=== PATIENT | male | born 1960 | race Caucasian/White ===

== ENCOUNTER → 2020-04-22 08:55 | Outpatient (CLI) | payer BC, SELFPAY ==
[2020-04-22 10:11] LABS: Blood Urea Nitrogen 19 mg/dl (9-20); Estimated Glomerular Filt Rate 56 ml/min (>60); GFR (African American) 68 ML/MIN (>60)
--- NOTE | 2020-04-22 10:24 | CT_ITS ---
PROCEDURE: CT ABDOMEN PELVIS W CON CLINICAL INDICATION: ABD PAIN Bilateral flank pain mostly on the right COMPARISON: No exams were available for comparison TECHNIQUE: IV Contrast: 75ML OPTIRAY 350 Oral Contrast none Axial images obtained with sagittal and coronal reformats. All CT scans at the facility use one or more dose reduction, viz: automated exposure control, ma/kV adjustment per patient size (including targeted exams where dose is matched to indication, i.e. head), or iterative reconstruction technique. FINDINGS: LOWER THORAX: No acute finding. Minimal nonspecific thickening of the pericardium inferiorly ABDOMEN & PELVIS: Fatty liver. Prior cholecystectomy. No focal liver lesion. The spleen, right adrenal gland, and pancreas have an unremarkable appearance. There is a 3 cm left adrenal nodule. This measures 46 Hounsfield units on the portal phase imaging enhancement and 9 Hounsfield units on the delayed imaging with a relative washout of 80 percent which is highly suggestive of adrenal adenoma. An unenhanced exam could confirm this finding if clinically desired. There is an exophytic 13 mm hypodensity projecting off the lower pole of the right kidney with a density of 23 Hounsfield units. There was questionable thickened capsule of this lesion. Ultrasound suggested for further evaluation. No evidence of appendicitis or diverticulitis. There are scattered colonic diverticula. No intestinal obstruction or free air. There are scattered small nodes in the inguinal region. No pelvic mass or abnormal fluid collection. The prostate is mildly enlarged at 4.5 cm. There is thickening of the wall of the stomach. This may be due to nondistention versus gastritis. No acute bony anomalies. There is a left common iliac artery stent present which appears patent. IMPRESSION: 1. A fatty liver. 2. 3 cm left adrenal nodule which has the enhancement characteristics and washout appearance of an adenoma. Suggest [address] follow-up without contrast to confirm stability due to the 3 cm size. 3. Indeterminate right renal nodule. Suggest ultrasound to confirm cystic or solid characteristics. 4. Thickened wall of the stomach which may be due to nondistention or gastritis. Dictated by: Td Geronimo MD 04/23/2020 10:28 Electronically signed by Td Geronimo MD in [facility] 04/23/2020 10:28
== END ==
PROVIDERS: PCP Family Medicine; Visit Provider Family Medicine
DX: R10.84 Generalized abdominal pain (principal)
CPT/HCPCS: 36415; 74177; 82565; 84520; Q9967

== ENCOUNTER → 2020-04-30 10:02 | Outpatient (CLI) | payer BC, SELFPAY ==
--- NOTE | 2020-04-30 10:06 | US_ITS ---
PROCEDURE: US KIDNEY CLINICAL INDICATION: RT RENAL NODULE Right renal cyst COMPARISON: CT ABDOMEN PELVIS W CON from 04/22/2020 FINDINGS: The right kidney is [id number]. No hydronephrosis, cortical thinning, or renal mass or perinephric fluid collection is evident. The left kidney is [id number]. No hydronephrosis, cortical thinning, or renal mass or perinephric fluid collection is evident. Along the lower pole of the right kidney there is an exophytic hypoechoic nodule which measures 1 cm corresponding to the CT abnormality. This does appear to have enhanced through transmission of sound. There are some low level echoes but could be due to artifact from the deep location of the lesion. This has the appearance of a cyst. IMPRESSION: 1 cm hypoechoic nodule lower pole of the right kidney which appears represent a cyst. There are some low level echoes therefore, recommend six-month sonographic follow-up to confirm stability Dictated by: Td Geronimo MD 04/30/2020 16:34 Electronically signed by Td Geronimo MD in [facility] 04/30/2020 16:34
== END ==
LOC: RAD 10:02
PROVIDERS: PCP Family Medicine; Visit Provider Family Medicine
DX: N28.89 Other specified disorders of kidney and ureter (principal)
CPT/HCPCS: 76770

== ENCOUNTER → 2020-07-08 12:29 | Outpatient (CLI) | payer BC, SELFPAY ==
[2020-07-08 12:47] LABS: Basophils # 0.1 K/mm3 (0-0.2); Basophils % 0.8 % (0.1-2.0); Eosinophils # 0.4 K/mm3 (0.0-0.4); Eosinophils % 3.4 % (0.1-12.0); Hematocrit 53.8 % (42.0-52.0); Hemoglobin 17.7 g/dL (14.1-18.0); Lymphocytes # 3.2 K/mm3 (0.7-4.5); Lymphocytes % 25.1 % (10-50); Mean Corpuscular HGB Conc 32.9 g/dL (31.8-35.4); Mean Corpuscular Hemoglobin 30.4 pg (27.0-31.2); Mean Corpuscular Volume 92.4 fl (80-94); Mean Platelet Volume 8.6 fl (7.4-10.4); Monocytes # 0.7 K/mm3 (0.1-1.0); Monocytes % 5.5 % (1.7-9.3); Neutrophils # 8.2 K/mm3 (1.8-7.8); Neutrophils % 65.1 % (37.0-80.0); Platelet Count 190 K/mm3 (142-424); Red Blood Count 5.83 M/mm3 (4.60-6.20); Red Cell Distribution Width 13.9 % (11.5-17.5); White Blood Count 12.6 K/mm3 (4.8-10.8)
[2020-07-08 12:54] LABS: Alanine Aminotransferase 31 U/L (12-78); Albumin Level 4.4 g/dl (3.5-5.0); Albumin/Globulin Ratio 1.4 (1.1-1.8); Alkaline Phosphatase 90 U/L (38-126); Anion Gap 16.2 mEq/L (5-15); Aspartate Amino Transferase 31 U/L (17-59); Bilirubin,Total 0.8 mg/dl (0.2-1.3); Blood Urea Nitrogen 21 mg/dl (9-20); Carbon Dioxide 26 mmol/L (22.0-30.0); Chloride 101 mmol/L (98-107); Chol/HDL Ratio 4.8 (1-3.5); Cholesterol 181 mg/dl (140-200); Estimated Glomerular Filt Rate 56 ml/min (>60); GFR (African American) 68 ML/MIN (>60); Globulin 3.2 g/dL (1.3-3.2); Glucose 132 mg/dl (74-100); HDL Cholesterol 38 mg/dl (40-60); Potassium 4.2 mmoL/L (3.5-5.1); Sodium 139 mmol/L (136-145); Total Protein,Serum 7.6 g/dl (6.3-8.2); Triglycerides 217 mg/dl (30-150); VLDL Cholesterol 43 mg/dL (0-40)
[2020-07-08 13:05] LABS: Direct LDL Cholesterol 111.69 mg/dL (100-129)
[2020-07-08 13:15] LABS: Hemoglobin A1C 6.3 % (4.0-6.0)
== END ==
PROVIDERS: Visit Provider Family Medicine
DX: E11.9 Type 2 diabetes mellitus without complications (principal); I73.9 Peripheral vascular disease, unspecified
CPT/HCPCS: 80053; 80061; 83036; 85025

== ENCOUNTER → 2020-11-02 12:36 | Outpatient (CLI) | payer BC, SELFPAY ==
--- NOTE | 2020-11-02 12:37 | CT_ITS ---
PROCEDURE: CT ABDOMEN WO CON CLINICAL HISTORY: 6 MONTH ADRENAL MASS RIGHT FLANK PAIN Follow-up adrenal mass COMPARISON: CT CT ABDOMEN PELVIS W CON from 04/22/2020 TECHNIQUE: Axial images obtained with sagittal and coronal reformats. All CT scans at the facility use one or more dose reduction, viz: automated exposure control, ma/kV adjustment per patient size (including targeted exams where dose is matched to indication, i.e. head), or iterative reconstruction technique. FINDINGS: 3 cm left adrenal nodule once again noted measuring -4 Hounsfield units on unenhanced images not significantly changed consistent with an adenoma. Lung bases are clear. There is minimal thickening of the pericardium. There is fatty liver infiltration. There has been a prior cholecystectomy. The spleen, right adrenal gland, and pancreas have an unremarkable appearance. No renal or ureteral calculi. There is an exophytic hypodensity projecting off the lower pole of the right kidney at 13 mm consistent with a renal cyst. There are few scattered small retroperitoneal and peritoneal lymph nodes. No intestinal obstruction or free air. No acute bony findings. IMPRESSION: No change left adrenal adenoma. Dictated by: Td Geronimo MD 11/03/2020 11:46 Td Geronimo MD in [facility] 11/03/2020 11:46
[2020-11-02 17:15] LABS: Basophils # 0.2 K/mm3 (0-0.2); Basophils % 1.2 % (0.1-2.0); Eosinophils # 0.5 K/mm3 (0.0-0.4); Hematocrit 56.2 % (42.0-52.0); Lymphocytes # 3.3 K/mm3 (0.7-4.5); Lymphocytes % 26.6 % (10-50); Mean Corpuscular HGB Conc 33.9 g/dL (31.8-35.4); Mean Corpuscular Hemoglobin 30.9 pg (27.0-31.2); Mean Platelet Volume 9.2 fl (7.4-10.4); Monocytes # 0.7 K/mm3 (0.1-1.0); Monocytes % 5.2 % (1.7-9.3); Neutrophils # 7.9 K/mm3 (1.8-7.8); Neutrophils % 62.9 % (37.0-80.0); Platelet Count 227 K/mm3 (142-424); Red Blood Count 6.18 M/mm3 (4.60-6.20); White Blood Count 12.5 K/mm3 (4.8-10.8)
[2020-11-02 17:37] LABS: Alanine Aminotransferase 33 U/L (12-78); Albumin Level 4.5 g/dl (3.5-5.0); Albumin/Globulin Ratio 1.3 (1.1-1.8); Alkaline Phosphatase 84 U/L (38-126); Anion Gap 13.5 mEq/L (5-15); Aspartate Amino Transferase 27 U/L (17-59); Bilirubin,Total 0.6 mg/dl (0.2-1.3); Blood Urea Nitrogen 21 mg/dl (9-20); Calcium 9.9 mg/dl (8.4-10.2); Carbon Dioxide 29 mmol/L (22.0-30.0); Chloride 102 mmol/L (98-107); Estimated Glomerular Filt Rate 56 ml/min (>60); GFR (African American) 68 ML/MIN (>60); Globulin 3.5 g/dL (1.3-3.2); Glucose 120 mg/dl (74-100); Potassium 4.5 mmoL/L (3.5-5.1); Sodium 140 mmol/L (136-145)
[2020-11-02 17:48] LABS: Hemoglobin A1C 6.2 % (4.0-6.0)
[2020-11-02 18:01] LABS: Prostate Specific Ag Screen 0.4 ng/ml (0.0-4.0); Thyroid Stimulating Hormone 2.61 uIU/mL (0.465-4.68)
[2020-11-02 18:09] LABS: Hemoglobin 19.1 g/dL (14.1-18.0)
[2020-11-03 09:01] LABS: Creatinine,Urine Random 112 mg/dL (Not Estab.)
[2020-11-03 09:03] LABS: Microalbumin/Creatinine Ratio 8.6
[2020-11-17 14:28] LABS: Testosterone, Total, LC/MS 383.1; Testosterone,Free 6.1
== END ==
PROVIDERS: PCP Family Medicine; Visit Provider Family Medicine
DX: E27.8 Other specified disorders of adrenal gland (principal)
CPT/HCPCS: 74150; 80053; 82043; 82570; 83036; 84402; 84403; 84443; 85025; G0103

== ENCOUNTER → 2020-11-02 16:40 | Outpatient (CLI) | payer BC, SELFPAY | PROVIDERS: Visit Provider Family Medicine | DX: E11.9 Type 2 diabetes mellitus without complications (principal) | CPT/HCPCS: 80053; 82043; 82570; 83036; 84402; 84403; 84443; 85025; G0103 ==

== ENCOUNTER → 2021-03-04 13:57 | Outpatient (CLI) | payer BC, SELFPAY ==
[2021-03-04 14:36] LABS: Chol/HDL Ratio 4.5 (1-3.5); Cholesterol 126 mg/dl (140-200); HDL Cholesterol 28 mg/dl (40-60); Triglycerides 165 mg/dl (30-150); VLDL Cholesterol 33 mg/dL (0-40)
[2021-03-04 14:48] LABS: Direct LDL Cholesterol 70.62 mg/dL (100-129)
[2021-03-12 17:14] LABS: Testosterone, Total, LC/MS 285.7 ng/dL (264.0-916.0); Testosterone,Free 3.5 pg/mL (6.6-18.1)
== END ==
PROVIDERS: Visit Provider Family Medicine
DX: E11.9 Type 2 diabetes mellitus without complications (principal); Z79.899 Other long term (current) drug therapy
CPT/HCPCS: 80061; 84402; 84403

== ENCOUNTER → 2021-03-28 14:04 | Outpatient (CLI) | payer BC, SELFPAY | PROVIDERS: Visit Provider Family Medicine | DX: N28.89 Other specified disorders of kidney and ureter (principal) | CPT/HCPCS: 87086 ==

== ENCOUNTER → 2021-04-12 08:15 | Outpatient (CLI) | payer BC, SELFPAY ==
--- NOTE | 2021-04-12 08:15 | US_ITS ---
PROCEDURE: US KIDNEY CLINICAL INDICATION: COMPARISON: US US KIDNEY from 04/30/2020 FINDINGS: The right kidney is [id number]. No hydronephrosis, cortical thinning, or renal mass or perinephric fluid collection is evident.. There is a 1 cm exophytic cyst projecting off the lower pole of the right kidney not significantly changed The left kidney is [id number]. No hydronephrosis, cortical thinning, or renal mass or perinephric fluid collection is evident. IMPRESSION: No change small right renal cyst. Otherwise negative bilateral renal ultrasound Dictated by: Td Geronimo MD 04/12/2021 17:16 Td Geronimo MD in [facility] 04/12/2021 17:16
--- NOTE | 2021-04-12 08:15 | CT_ITS ---
PROCEDURE: CT ABDOMEN W CON CLINICAL HISTORY: right side abd pain R flank pain COMPARISON: CT CT ABDOMEN PELVIS W CON from 04/22/[address] ABDOMEN WO CON from 11/02/2020 TECHNIQUE: Axial images obtained with sagittal and coronal reformats. All CT scans at the facility use one or more dose reduction, viz: automated exposure control, ma/kV adjustment per patient size (including targeted exams where dose is matched to indication, i.e. head), or iterative reconstruction technique. FINDINGS: Lung bases are clear. There is mild thickening of the pericardium anteriorly. Fatty liver. Small area of decreased attenuation is present in the right hepatic lobe inferiorly and may be due to a more focal area of fatty infiltration along the subcapsular region measuring approximately 10 by 6 mm. There are few small nodes in the perigastric region along the lesser curvature and the periportal and portal caval region. These are nonspecific. There is a 3 cm left adrenal nodule which is not significantly changed from 11/02/2020 and 04/22/2020 consistent with an adenoma on the previously performed unenhanced exam. Right adrenal gland is unremarkable. The spleen and pancreas have an unremarkable appearance. No renal or ureteral calculi. There are small bilateral renal cysts. No renal mass apparent. The proximal ureters have an unremarkable appearance. The distal ureters are not imaged. Left common iliac artery stent is present and appears patent. Bowel gas pattern is nonspecific. The pelvis was not performed. There are mild degenerative changes in the lumbar spine. Proximal aspect of the appendix is unremarkable. The tip is not imaged. IMPRESSION: 1. No acute finding. No renal or ureteral calculi. No evidence of renal mass. 2. No change left adrenal nodule consistent with an adenoma. 3. Other nonacute findings as detailed above. Dictated by: Td Geronimo MD 04/13/2021 08:13 Td Geronimo MD in [facility] 04/13/2021 08:13
[2021-04-12 08:33] LABS: Basophils # 0.1 K/mm3 (0-0.2); Basophils % 0.9 % (0.1-2.0); Eosinophils # 0.4 K/mm3 (0.0-0.4); Eosinophils % 3.3 % (0.1-12.0); Hematocrit 48.8 % (42.0-52.0); Hemoglobin 16.7 g/dL (14.1-18.0); Lymphocytes # 2.9 K/mm3 (0.7-4.5); Lymphocytes % 24.5 % (10-50); Mean Corpuscular HGB Conc 34.1 g/dL (31.8-35.4); Mean Corpuscular Hemoglobin 30.2 pg (27.0-31.2); Mean Corpuscular Volume 88.3 fl (80-94); Mean Platelet Volume 8.5 fl (7.4-10.4); Monocytes # 0.7 K/mm3 (0.1-1.0); Neutrophils # 7.6 K/mm3 (1.8-7.8); Neutrophils % 65.4 % (37.0-80.0); Platelet Count 188 K/mm3 (142-424); Red Blood Count 5.52 M/mm3 (4.60-6.20); Red Cell Distribution Width 13.8 % (11.5-17.5); White Blood Count 11.7 K/mm3 (4.8-10.8)
[2021-04-12 08:38] LABS: Chloride 104 mmol/L (98-107); Sodium 141 mmol/L (136-145)
[2021-04-12 08:41] LABS: Alanine Aminotransferase 26 U/L (12-78); Albumin Level 4.3 g/dl (3.5-5.0); Albumin/Globulin Ratio 1.4 (1.1-1.8); Alkaline Phosphatase 83 U/L (38-126); Aspartate Amino Transferase 21 U/L (17-59); Bilirubin,Total 0.4 mg/dl (0.2-1.3); Blood Urea Nitrogen 20 mg/dl (9-20); Calcium 9.1 mg/dl (8.4-10.2); Carbon Dioxide 28 mmol/L (22.0-30.0); Estimated Glomerular Filt Rate 62 ml/min (>60); GFR (African American) 74 ML/MIN (>60); Globulin 3.1 g/dL (1.3-3.2); Glucose 133 mg/dl (74-100); Potassium 3.7 mmoL/L (3.5-5.1); Total Protein,Serum 7.4 g/dl (6.3-8.2)
== END ==
PROVIDERS: PCP Family Medicine; Visit Provider Family Medicine
DX: N28.1 Cyst of kidney, acquired (principal); R10.9 Unspecified abdominal pain; Z01.818 Encounter for other preprocedural examination; E11.9 Type 2 diabetes mellitus without complications; I10 Essential (primary) hypertension
CPT/HCPCS: 74160; 76770; 80053; 85025; Q9967

== ENCOUNTER → 2021-06-16 14:07 | Outpatient (CLI) | payer BC, SELFPAY | PROVIDERS: Visit Provider Family Medicine | DX: N39.0 Urinary tract infection, site not specified (principal) | CPT/HCPCS: 87086 ==

== ENCOUNTER → 2021-11-01 13:12 | Outpatient (CLI) | payer BC, SELFPAY ==
[2021-11-01 13:24] LABS: Chloride 102 mmol/L (98-107); Potassium 4.1 mmoL/L (3.5-5.1); Sodium 139 mmol/L (136-145)
[2021-11-01 13:27] LABS: Anion Gap 14.1 mEq/L (5-15); Blood Urea Nitrogen 24 mg/dl (9-20); Carbon Dioxide 27 mmol/L (22.0-30.0); Estimated Glomerular Filt Rate 56 ml/min (>60); GFR (African American) 68 ML/MIN (>60)
[2021-11-01 13:28] LABS: Calcium 9.5 mg/dl (8.4-10.2); Chol/HDL Ratio 4.8 (1-3.5); Cholesterol 155 mg/dl (140-200); Glucose 122 mg/dl (74-100); HDL Cholesterol 32 mg/dl (40-60); Triglycerides 144 mg/dl (30-150); VLDL Cholesterol 29 mg/dL (0-40)
[2021-11-01 13:39] LABS: Direct LDL Cholesterol 104.31 mg/dL (100-129); Hemoglobin A1C 6.1 % (4.0-6.0)
[2021-11-01 13:41] LABS: Basophils # 0.1 K/mm3 (0-0.2); Basophils % 0.7 % (0.1-2.0); Eosinophils # 0.4 K/mm3 (0.0-0.4); Eosinophils % 3.8 % (0.1-12.0); Hematocrit 50.6 % (42.0-52.0); Hemoglobin 17.4 g/dL (14.1-18.0); Mean Corpuscular HGB Conc 34.3 g/dL (31.8-35.4); Mean Corpuscular Hemoglobin 30.7 pg (27.0-31.2); Mean Corpuscular Volume 89.6 fl (80-94); Mean Platelet Volume 9.1 fl (7.4-10.4); Monocytes # 0.7 K/mm3 (0.1-1.0); Monocytes % 6.5 % (1.7-9.3); Neutrophils # 6.4 K/mm3 (1.8-7.8); Platelet Count 191 K/mm3 (142-424); Red Blood Count 5.65 M/mm3 (4.60-6.20); Red Cell Distribution Width 13.7 % (11.5-17.5); White Blood Count 10.5 K/mm3 (4.8-10.8)
== END ==
PROVIDERS: Visit Provider Family Medicine
DX: E11.9 Type 2 diabetes mellitus without complications (principal); I73.9 Peripheral vascular disease, unspecified; N50.89 Other specified disorders of the male genital organs
CPT/HCPCS: 80048; 80061; 83036; 85025

== ENCOUNTER → 2022-02-20 15:43 | Outpatient (CLI) | payer BC, SELFPAY ==
[2022-02-20 13:45] LABS: Alanine Aminotransferase 23 U/L (12-78); Albumin Level 4.1 g/dl (3.5-5.0); Albumin/Globulin Ratio 1.6 (1.1-1.8); Alkaline Phosphatase 72 U/L (38-126); Anion Gap 10.2 mEq/L (5-15); Aspartate Amino Transferase 30 U/L (17-59); Bilirubin,Total 0.4 mg/dl (0.2-1.3); Blood Urea Nitrogen 19 mg/dl (9-20); Calcium 9.1 mg/dl (8.4-10.2); Carbon Dioxide 29 mmol/L (22.0-30.0); Chloride 105 mmol/L (98-107); Chol/HDL Ratio 4.2 (1-3.5); Cholesterol 139 mg/dl (140-200); Estimated Glomerular Filt Rate 68 ml/min (>60); GFR (African American) 82 ML/MIN (>60); Globulin 2.6 g/dL (1.3-3.2); Glucose 117 mg/dl (74-100); HDL Cholesterol 33 mg/dl (40-60); Potassium 4.2 mmoL/L (3.5-5.1); Sodium 140 mmol/L (136-145); Total Protein,Serum 6.7 g/dl (6.3-8.2); Triglycerides 113 mg/dl (30-150); VLDL Cholesterol 23 mg/dL (0-40)
[2022-02-20 13:57] LABS: Direct LDL Cholesterol 77.58 mg/dL (100-129)
[2022-02-20 14:36] LABS: Hemoglobin A1C 6.2 % (4.0-6.0)
== END ==
PROVIDERS: Visit Provider Family Medicine
DX: E11.9 Type 2 diabetes mellitus without complications (principal)
CPT/HCPCS: 80053; 80061; 83036

== ENCOUNTER → 2022-11-20 10:30 | Outpatient (CLI) | payer BC, SELFPAY ==
[2022-11-20 14:09] LABS: Alanine Aminotransferase 24 U/L (12-78); Albumin Level 4.4 g/dl (3.5-5.0); Albumin/Globulin Ratio 1.6 (1.1-1.8); Alkaline Phosphatase 77 U/L (38-126); Anion Gap 14.1 mEq/L (5-15); Aspartate Amino Transferase 24 U/L (17-59); Bilirubin,Total 0.5 mg/dl (0.2-1.3); Blood Urea Nitrogen 31 mg/dl (9-20); Calcium 9.3 mg/dl (8.4-10.2); Carbon Dioxide 30 mmol/L (22.0-30.0); Chloride 102 mmol/L (98-107); Estimated Glomerular Filt Rate 41 ml/min (>60); GFR (African American) 50 ML/MIN (>60); Globulin 2.8 g/dL (1.3-3.2); Glucose 112 mg/dl (74-100); Potassium 5.1 mmoL/L (3.5-5.1); Sodium 141 mmol/L (136-145); Total Protein,Serum 7.2 g/dl (6.3-8.2)
[2022-11-20 14:59] LABS: Hemoglobin A1C 6.6 % (4.0-6.0)
== END ==
PROVIDERS: PCP Family Medicine; Visit Provider Family Medicine
DX: E11.9 Type 2 diabetes mellitus without complications (principal)
CPT/HCPCS: 80053; 83036

== ENCOUNTER → 2023-02-19 08:35 | Outpatient (CLI) | payer BC, SELFPAY ==
[2023-02-19 15:08] LABS: Amphetamine/Metha Screen,Urine Negative ng/ml (<1000)
[2023-02-19 15:09] LABS: Barbiturates Screen,Urine Negative ng/ml (<200); Benzodiazepines Screen,Urine Positive ng/ml (<200)
[2023-02-19 15:10] LABS: Cannabinoid Screen,Urine Negative ng/ml (<50)
[2023-02-19 15:11] LABS: Cocaine Screen,Urine Negative ng/ml (<300)
[2023-02-19 15:12] LABS: Methadone Screen,Urine Negative ng/ml (<300); Opiate Screen,Urine Negative ng/ml (<300)
[2023-02-19 15:13] LABS: Phencyclidine Screen,Urine Negative ng/ml (<25)
== END ==
PROVIDERS: PCP Family Medicine; Visit Provider Family Medicine
DX: G89.29 Other chronic pain (principal)
CPT/HCPCS: 80305

== ENCOUNTER → 2023-07-02 08:46 | Outpatient (CLI) | payer BC, SELFPAY ==
[2023-07-02 19:16] LABS: Basophils # 0.1 K/mm3 (0-0.2); Basophils % 0.5 % (0.1-2.0); Eosinophils # 0.3 K/mm3 (0.0-0.4); Eosinophils % 2.8 % (0.1-12.0); Hematocrit 50.8 % (42.0-52.0); Hemoglobin 16.7 g/dL (14.1-18.0); Lymphocytes # 2.1 K/mm3 (0.7-4.5); Lymphocytes % 18.7 % (10-50); Mean Corpuscular HGB Conc 32.9 g/dL (31.8-35.4); Mean Corpuscular Hemoglobin 30.2 pg (27.0-31.2); Mean Corpuscular Volume 91.6 fl (80-94); Mean Platelet Volume 10.6 fl (7.4-10.4); Monocytes # 0.8 K/mm3 (0.1-1.0); Monocytes % 6.8 % (1.7-9.3); Neutrophils % 71.1 % (37.0-80.0); Platelet Count 173 K/mm3 (142-424); Red Blood Count 5.54 M/mm3 (4.60-6.20); Red Cell Distribution Width 14.5 % (11.5-17.5); White Blood Count 11.3 K/mm3 (4.8-10.8)
[2023-07-02 19:25] LABS: Alanine Aminotransferase 40 U/L (12-78); Albumin Level 4.1 g/dl (3.5-5.0); Albumin/Globulin Ratio 1.4 (1.1-1.8); Alkaline Phosphatase 80 U/L (38-126); Anion Gap 15.8 mEq/L (5-15); Aspartate Amino Transferase 30 U/L (17-59); Bilirubin,Total 0.4 mg/dl (0.2-1.3); Blood Urea Nitrogen 16 mg/dl (9-20); Calcium 8.9 mg/dl (8.4-10.2); Carbon Dioxide 26 mmol/L (22.0-30.0); Chloride 104 mmol/L (98-107); Chol/HDL Ratio 4.3 (1-3.5); Cholesterol 115 mg/dl (140-200); Estimated Glomerular Filt Rate 61 ml/min (>60); GFR (African American) 74 ML/MIN (>60); Globulin 2.9 g/dL (1.3-3.2); Glucose 144 mg/dl (74-100); HDL Cholesterol 27 mg/dl (40-60); Potassium 3.8 mmoL/L (3.5-5.1); Sodium 142 mmol/L (136-145); Triglycerides 190 mg/dl (30-150); VLDL Cholesterol 38 mg/dL (0-40)
[2023-07-02 19:36] LABS: Direct LDL Cholesterol 58.37 mg/dL (100-129)
[2023-07-02 19:50] LABS: Hemoglobin A1C 6.8 % (4.0-6.0)
[2023-07-02 20:44] LABS: Prostate Specific Ag Screen 0.6 ng/ml (0.0-4.0)
== END ==
LOC: LAB.DROPOF 07-03 07:03
PROVIDERS: PCP Family Medicine; Visit Provider Family Medicine
DX: N28.9 Disorder of kidney and ureter, unspecified (principal); I10 Essential (primary) hypertension; M15.4 Erosive (osteo)arthritis; E11.9 Type 2 diabetes mellitus without complications; E66.9 Obesity, unspecified; Z68.36 Body mass index [BMI] 36.0-36.9, adult; Z12.5 Encounter for screening for malignant neoplasm of prostate
CPT/HCPCS: 80053; 80061; 83036; 85025; G0103

== ENCOUNTER → 2023-11-05 06:48 | Outpatient (CLI) | payer BC, SELFPAY ==
[2023-11-05 18:30] LABS: Alanine Aminotransferase 36 U/L (12-78); Albumin Level 4.3 g/dl (3.5-5.0); Albumin/Globulin Ratio 1.4 (1.1-1.8); Alkaline Phosphatase 76 U/L (38-126); Anion Gap 11.2 mEq/L (5-15); Aspartate Amino Transferase 33 U/L (17-59); Bilirubin,Total 0.5 mg/dl (0.2-1.3); Blood Urea Nitrogen 25 mg/dl (9-20); Calcium 9.1 mg/dl (8.4-10.2); Carbon Dioxide 25 mmol/L (22.0-30.0); Chloride 104 mmol/L (98-107); Estimated Glomerular Filt Rate 47 ml/min (>60); GFR (African American) 57 ML/MIN (>60); Glucose 165 mg/dl (74-100); Potassium 4.2 mmoL/L (3.5-5.1); Sodium 136 mmol/L (136-145); Total Protein,Serum 7.3 g/dl (6.3-8.2)
[2023-11-05 19:00] LABS: Hemoglobin A1C 7.2 % (4.0-6.0)
[2023-11-05 19:18] LABS: Amphetamine/Metha Screen,Urine Negative ng/ml (<1000); Benzodiazepines Screen,Urine Positive ng/ml (<200)
[2023-11-05 19:19] LABS: Barbiturates Screen,Urine Negative ng/ml (<200)
[2023-11-05 19:20] LABS: Cannabinoid Screen,Urine Negative ng/ml (<50); Methadone Screen,Urine Negative ng/ml (<300)
[2023-11-05 19:21] LABS: Cocaine Screen,Urine Negative ng/ml (<300)
[2023-11-05 19:22] LABS: Opiate Screen,Urine Negative ng/ml (<300)
[2023-11-05 19:23] LABS: Phencyclidine Screen,Urine Negative ng/ml (<25)
== END ==
LOC: LAB.DROPOF 11-06 06:49
PROVIDERS: PCP Family Medicine; Visit Provider Family Medicine
DX: M54.50 Low back pain, unspecified (principal); Z79.899 Other long term (current) drug therapy; E11.9 Type 2 diabetes mellitus without complications
CPT/HCPCS: 80053; 80305; 83036

== ENCOUNTER 2024-07-16 09:31 | Outpatient (CLI) | payer BC, SELFPAY ==
--- NOTE | 2024-07-16 09:36 | US_ITS ---
FINAL REPORT TECHNIQUE: Ultrasound images of the testicles were obtained bilaterally. Color Doppler images were obtained. CLINICAL HISTORY: testicular swelling -- pain COMPARISON: None FINDINGS: The bilateral testicles are normal in size. Epididymal cystic areas are noted measuring up to 6 mm on the left. There is a small left hydrocele. Blood flow is noted to the testicles bilaterally. IMPRESSION: Small left hydrocele. Bilateral epididymal cystic areas. Reviewed, Interpreted and Dictated by Jose E Mata MD Transcribed by Pari Ren Authenticated and [facility]
== END 2024-07-16 23:59 | disposition home or self-care (01) ==
LOC: RAD 09:33
PROVIDERS: PCP Family Medicine; Visit Provider Family Medicine
DX: N50.89 Other specified disorders of the male genital organs (principal)
CPT/HCPCS: 76870

== ENCOUNTER 2025-02-06 10:00 | Outpatient (CLI) | payer BC, SELFPAY ==
[2025-02-06 18:08] LABS: Basophils # 0.1 K/mm3 (0-0.2); Basophils % 0.8 % (0.1-2.0); Eosinophils # 0.2 K/mm3 (0.0-0.4); Eosinophils % 1.7 % (0.1-12.0); Hematocrit 48.8 % (42.0-52.0); Hemoglobin 16.2 g/dL (14.1-18.0); Lymphocytes # 2.3 K/mm3 (0.7-4.5); Lymphocytes % 19.4 % (10-50); Mean Corpuscular HGB Conc 33.2 g/dL (31.8-35.4); Mean Corpuscular Hemoglobin 29.3 pg (27.0-31.2); Mean Corpuscular Volume 88.4 fl (80-94); Mean Platelet Volume 11.2 fl (7.4-10.4); Monocytes # 0.8 K/mm3 (0.1-1.0); Monocytes % 6.6 % (1.7-9.3); Neutrophils # 8.5 K/mm3 (1.8-7.8); Neutrophils % 71.2 % (37.0-80.0); Platelet Count 195 K/mm3 (142-424); Red Blood Count 5.52 M/mm3 (4.60-6.20); Red Cell Distribution Width 14.2 % (11.5-17.5)
[2025-02-06 18:29] LABS: Albumin Level 4.3 g/dl (3.5-5.0); Albumin/Globulin Ratio 1.7 (1.1-1.8); Blood Urea Nitrogen 23 mg/dl (9-20); Calcium 8.6 mg/dl (8.4-10.2); Carbon Dioxide 29 mmol/L (22.0-30.0); Estimated Glomerular Filt Rate 61 ml/min (>60); GFR (African American) 74 ML/MIN (>60); Globulin 2.5 g/dL (1.3-3.2); Glucose 131 mg/dl (74-100); HDL Cholesterol 37 mg/dl (40-60); Potassium 3.4 mmoL/L (3.5-5.1); Sodium 139 mmol/L (136-145); Total Protein,Serum 6.8 g/dl (6.3-8.2)
[2025-02-06 18:31] LABS: Alanine Aminotransferase 28 U/L (12-78); Alkaline Phosphatase 69 U/L (38-126); Anion Gap 9.4 mEq/L (5-15); Aspartate Amino Transferase 23 U/L (17-59); Bilirubin,Total 0.6 mg/dl (0.2-1.3); Chloride 104 mmol/L (98-107); Chol/HDL Ratio 3.7 (1-3.5); Cholesterol 136 mg/dl (140-200); Triglycerides 132 mg/dl (30-150); VLDL Cholesterol 26 mg/dL (0-40)
[2025-02-06 19:04] LABS: Prostate Specific Ag Screen 0.4 ng/ml (0.0-4.0)
[2025-02-06 20:16] LABS: Hemoglobin A1C 6.2 % (4.0-6.0)
== END 2025-02-06 23:59 | disposition home or self-care (01) ==
LOC: LAB.DROPOF 02-09 10:50
PROVIDERS: PCP Family Medicine; Visit Provider Family Medicine
DX: I10 Essential (primary) hypertension (principal); M54.9 Dorsalgia, unspecified; F41.9 Anxiety disorder, unspecified
CPT/HCPCS: 80053; 80061; 83036; 85025; G0103

== ENCOUNTER 2025-02-17 06:51 | Outpatient (CLI) | payer BC, SELFPAY ==
--- NOTE | 2025-02-17 06:57 | XR_ITS ---
FINAL REPORT CLINICAL HISTORY: LOW BACK BILATERAL HIP PAIN COMPARISON: None FINDINGS: RIGHT HIP 3 views of the right hip demonstrate no acute fracture or dislocation. There are mild degenerative changes. The visualized bony structures are well aligned. No soft tissue abnormality is seen. IMPRESSION: Mild degenerative changes. Reviewed, Interpreted and Dictated by Cesario Guerrero MD Transcribed by Kaity Latham Authenticated and [facility]
--- NOTE | 2025-02-17 06:57 | XR_ITS ---
FINAL REPORT CLINICAL HISTORY: LOW BACK BILATERAL HIP PAIN COMPARISON: None FINDINGS: 3 views of the lumbar spine were obtained. There is no evidence of fracture. There is no malalignment. There is mild diffuse degenerative disc disease and spondylosis. Facet arthropathy is noted. No paraspinous soft tissue abnormalities identified. IMPRESSION: Degenerative changes without acute process. Reviewed, Interpreted and Dictated by Cesario Guerrero MD Transcribed by Kaity Latham Authenticated and [facility]
--- NOTE | 2025-02-17 06:57 | XR_ITS ---
FINAL REPORT CLINICAL HISTORY: LOW BACK BILATERAL HIP PAIN COMPARISON: None FINDINGS: LEFT HIP: 3 views of the left hip demonstrate no acute fracture or dislocation. The joint spaces appear normal. The visualized bony structures are well aligned. No soft tissue abnormality is seen. IMPRESSION: No acute bony abnormality. Reviewed, Interpreted and Dictated by Cesario Guerrero MD Transcribed by Kaity Latham Authenticated and [facility]
--- NOTE | 2025-02-17 07:00 | CT_ITS ---
FINAL REPORT CLINICAL HISTORY: lung cancer screening CURRENT SMOKER 2PPD X51 YEARS COMPARISON: None FINDINGS: CT CHEST LOW DOSE SCREENING HISTORY: Screening exam for lung cancer. 64-year-old male, current smoker, [id number] history. DOSE: CTDI vol: 2.90 mGy, DLP: 102.38 mGy*cm TECHNIQUE: Axial CT without IV contrast administration using low dose protocol. This study was performed with techniques to keep radiation doses as low as reasonably achievable, (ALARA). Individualized dose reduction techniques using automated exposure control or adjustment of mA and/or kV according to the patient's size were employed. No acute lung disease is present. No pulmonary lesions are seen suspicious for neoplasm. There is evidence of prior granulomatous disease. No pleural or pericardial effusion is seen. No adenopathy or mass lesion is present. There is a left adrenal mass, measuring up to 32 mm in size, and measuring 12 Hounsfield units and density. IMPRESSION: No evidence of lung cancer Left adrenal mass as described. LUNG RADS CATEGORY 1 S RECOMMENDATION: 12 month LDCT follow up MRI or CT adrenal mass protocol to evaluate left adrenal mass. Reviewed, Interpreted and Dictated by Cesario Guerrero MD Transcribed by Palmira Whitman Authenticated and [facility]
== END 2025-02-17 23:59 | disposition home or self-care (01) ==
LOC: RAD 06:53
PROVIDERS: PCP Family Medicine; Visit Provider Family Medicine
DX: F17.210 Nicotine dependence, cigarettes, uncomplicated (principal); M25.551 Pain in right hip; M25.552 Pain in left hip; M54.50 Low back pain, unspecified; G89.29 Other chronic pain
CPT/HCPCS: 71271; 72100; 73502

== ENCOUNTER 2025-02-25 07:13 | Outpatient (CLI) | payer BC, SELFPAY ==
--- NOTE | 2025-02-25 | CA_ITS ---
APPROVED REPORT Exam: Pharmacologic Technologist: Nat Fuentes Ht: 6 ft 0 in Wt: 241 lbs BSA: 2.31 m2 Stress Test Details Test: Lexiscan Reason for pharmacologic stress test: physical limitation. HR Resting HR: 69 bpm Max Heart Rate (APMHR): 155 bpm Max HR Achieved: 102 bpm Target HR (85% APMHR): 132 bpm % of APMHR: 66 Recovery HR: 95 bpm BP Resting BP: 144.0/70.0 mmHg Max BP: 163.0/70.0 mmHg Recovery BP: 149.0/74.0 mmHg ECG Stress ECG Conclusion Symptoms: Chest tightness. Arrhythmias/Ecotpy: None. ST-T Changes: EKG nondiagnostic-Candi. Electronically signed by : Natalia Littlejohn MD 02/25/2025 12:16:28
--- NOTE | 2025-02-25 | CA_ITS ---
APPROVED REPORT EXAM: Comprehensive 2D, Doppler, and color-flow Echocardiogram Guardian Family Member: Roseann Castillo CRT Ht: 6 ft 0 in Wt: 241lbs BSA: 2.31 BP: 131/72 mmHg Indications: Shortness of Breath, Diabetes, Hypertension/HDD, PVD 2D Dimensions LA Volume 38.10 mL LA Volume Index 16.10 mL/m2 (M/F) 16-34 M-Mode Dimensions RVDd 2.29 cm (0.9-2.6) LA Diam 3.89 cm (1.9-4.0) LVDd 5.50 cm (3.5-5.7) LVDs 3.65 cm (3.5-5.7) IVSd 1.16 cm (0.6-1.1) PWd 0.84 cm (0.6-1.1) EF (Teich) 61.80% FS 33.60% EDV (Teich) 147.40 mL ESV (Teich) 56.30 mL LV Diastology E Decel Time 157 (160-240 msec) E/A Ratio 1.21 MED A' 9.90 cm/s LAT A' 5.30 cm/s Aortic Valve AO Peak GR. 6.80 mmHg Mitral Valve MV A Velocity 82.0 (40-130 cm/s) E/A Ratio 1.21 Pulmonary Valve PV Peak Velocity 140.0 (50-150 cm/s) Tricuspid Valve TR P. Velocity 249.00 cm/s RAP Estimate 10.00 mmHg RVSP 34.80 mmHg Left Ventricle The left ventricle is normal size. The left ventricular systolic function is normal. The left ventricular ejection fraction is within the normal range. There is normal left ventricular wall thickness. There is normal LV segmental wall motion. The left ventricular diastolic function is normal. LVEF is 55%. Right Ventricle The right ventricle is normal size. The right ventricular systolic function is normal. Atria The left atrium size is normal. The right atrium size is normal. There is no Doppler evidence of interatrial shunt. Aortic Valve Aortic valve is mildly thickened. No aortic regurgitation is present. Mitral Valve The mitral valve is normal in structure. No evidence of mitral valve stenosis. Mild mitral regurgitation. Tricuspid Valve Tricuspid valve is grossly normal in structure and function. Trace tricuspid regurgitation. There is insufficient TR jet to estimate RVSP. Pulmonic Valve The pulmonary valve is normal in structure. Trace pulmonic regurgitation. Great Vessels The aortic root is normal in size. The ascending aorta is normal in size. IVC is normal in size and collapses >50% with inspiration. Pericardium There is no pericardial effusion. Other Information Study Quality: Fair Conclusion Normal biventricular systolic function. Mild MR. Electronically signed by : Natalia Littlejohn MD 03/02/2025 00:10:40
--- NOTE | 2025-02-25 07:30 | MR_ITS ---
FINAL REPORT CLINICAL HISTORY: adrenal mass; adrenal protocol left adrenal mass FINDINGS: Multiplanar MR imaging of the abdomen was performed without and with contrast. There is a 30 mm enhancing lesion of the left adrenal gland. Lesion shows a significant signal dropout on opposed phase imaging compatible with a benign adenoma. The right adrenal gland is normal. There is an 8 mm benign cyst in the lower pole of the left kidney. Remaining solid organs are unremarkable. There is no adenopathy or ascites. IMPRESSION: Left adrenal mass compatible with benign adenoma. Reviewed, Interpreted and Dictated by Cesario Guerrero MD Transcribed by Mary Ellen Salas Authenticated and [facility]
[2025-02-25] MEDS: GADOTERIDOL INJ 10ML SYRINGE 2 ML IV (08:44)
[2025-02-25] MEDS: GADOTERIDOL INJ 20ML SYRINGE 20 ML IV (08:44)
[2025-02-25] MEDS: SODIUM CHLORIDE 0.9% 10ML SYR (RAD ONLY) 10 ML IV ×4 (08:44→10:30)
[2025-02-25] MEDS: REGADENOSON 0.4MG/5ML SYRINGE 0.4 MG IV (10:30)
[2025-02-25] MEDS: ISOTOPE MYOVIEW (PER STUDY) 1 DOSE IV (10:58)
--- NOTE | 2025-02-25 11:30 | NM_ITS ---
APPROVED REPORT Exam: Nuclear Stress Test Indication: htn, diabetes, tob use, sob Patient Location: Outpatient Stress Tech: Nat Cooper AR Tech:Salud Gomes TOANClaudy RT (R)(N)(M) Ht: 5 ft 11 in Wt: 241 lbs HR: 69 bpm BP: 144/70 mmHg BSA: 2.28 m2 TID: 1.11 BMI: 33.6 History: htn, diabetes, tob use, sob Procedure: Patient received 0.4 mg of intravenous Lexiscan, resting heart rate 69 bpm, resting blood pressure 144/70 mmHg, with Lexiscan maximum heart rate achieved was 101 bpm which is % of the maximum predicted heart rate and blood pressure was 157/70 mmHg. With Lexiscan, patient denied any complaint of chest pain. Cardiac Stress and Resting SPECT Images: Cardiac Stress and Resting SPECT images were obtained using technetium 99m Myoview 30.2 mCi stress and 10.65 mCi at rest. Resting and stress imaging in supine and prone positions demonstrate no evidence of fixed or reversible perfusion defects. Gated imaging demonstrates normal global and regional LV systolic function. LVEF is calculated at 62%. Conclusion: No evidence of fixed or reversible perfusion defects. Gated imaging demonstrates normal global and regional LV systolic function. LVEF is calculated at 62%. Electronically signed by : Natalia Littlejohn MD 02/25/2025 12:14:25
== END 2025-02-25 23:59 | disposition home or self-care (01) ==
LOC: RAD 07:14
PROVIDERS: PCP Family Medicine; Visit Provider Nurse Practitioner
DX: I73.9 Peripheral vascular disease, unspecified (principal); R06.00 Dyspnea, unspecified; E27.8 Other specified disorders of adrenal gland; E11.9 Type 2 diabetes mellitus without complications; I10 Essential (primary) hypertension
CPT/HCPCS: 74183; 78452; 93017; 93018; 93306; A9502; A9576; J2785

== ENCOUNTER 2025-03-11 07:48 | Outpatient (CLI) | payer BC, SELFPAY ==
[2025-03-11 08:13] LABS: Blood Urea Nitrogen 31 mg/dl (9-20); Estimated Glomerular Filt Rate 41 ml/min (>60); GFR (African American) 49 ML/MIN (>60)
--- NOTE | 2025-03-11 08:45 | CT_ITS ---
FINAL REPORT TECHNIQUE: Post contrast axial imaging of the aorta and bilateral lower extremity was obtained and reviewed.This study was performed with techniques to keep radiation doses as low as reasonably achievable (ALARA). Individualized dose reduction techniques using automated exposure control or adjustment of mA and/or kV according to the patient''s size were employed. CLINICAL HISTORY: claudication FINDINGS: There is no evidence of aortic aneurysm. No aortic dissection. There is stenosis at the origin of the celiac axis that is approximately 50%. The celiac axis branches are patent without stenosis. The SMA is widely patent. The PINA is either occluded at its origin or stenotic. It is patent just distal to the origin. The right renal artery is patent without stenosis. There is moderate stenosis of the proximal left renal artery. It is 50 to 75%. The bilateral common iliac arteries are patent. There is a left common iliac artery stent. There is mild right common iliac artery stenosis related to atherosclerotic disease. The bilateral internal and external iliac arteries are patent. Right: The right common femoral artery, deep femoral artery and superficial femoral artery are all patent, without stenosis. There is no stenosis of the popliteal artery. The anterior and posterior tibial and peroneal arteries are patent to the lower leg. The anterior and posterior tibial arteries are patent to the foot. Left: The left common femoral artery, deep femoral artery and superficial femoral artery are all patent, without stenosis. There is no stenosis of the popliteal artery. The anterior and posterior tibial and peroneal arteries are patent to the lower leg. The anterior and posterior tibial arteries are patent to the foot. Nonvascular: The gallbladder is absent. There is no acute abnormality of the solid organs. There are likely small renal cysts. No obstruction of the GI tract. No acute GI tract abnormality. No lymphadenopathy or ascites. IMPRESSION: 1. No evidence of abdominal aortic aneurysm. 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 3. No evidence of significant stenosis or occlusion of the vessels of either lower extremity. Authenticated and [facility]
[2025-03-11] MEDS: 0.9 % SODIUM CHLORIDE 50 ML VIAL 100 ML IV (09:11)
[2025-03-11] MEDS: SODIUM CHLORIDE 0.9% 10ML SYR (RAD ONLY) 10 ML IV (09:11)
[2025-03-11] MEDS: IOPAMIDOL-370 (76%);100ML BOTTLE 120 ML IV (09:12)
== END 2025-03-11 23:59 | disposition home or self-care (01) ==
LOC: RAD 07:49
PROVIDERS: PCP Family Medicine; Visit Provider Nurse Practitioner
DX: I73.9 Peripheral vascular disease, unspecified (principal); R06.00 Dyspnea, unspecified
CPT/HCPCS: 36415; 75635; 82565; 84520; Q9967

== ENCOUNTER 2025-04-01 11:22 | Observation (INO) | payer BC, SELFPAY ==
[2025-04-01] VITALS (47 sets, daily range): BP systolic 108–161; BP diastolic 56–99; PULSE 53–90; RESP 16–20; TEMP 36.4–36.7; O2SAT 91–97; BMI 33.5
--- NOTE | 2025-04-01 07:12 | IR_ITS ---
APPROVED REPORT Patient Location: Outpatient PROCEDURES Catheter placement in the suprarenal abdominal aorta Suprarenal abdominal aortogram Repositioning the catheter in the infrarenal abdominal aorta Infrarenal abdominal aortogram Catheter placement in the left renal artery Selective left renal artery angiogram Bare-metal balloon mounted stent deployment to the left renal artery Right retrograde femoral angiogram INDICATION Abnormal abdominal CTA, Celiac artery stenosis, Inferior mesenteric artery stenosis, Severe left renal artery stenosis, Renovascular hypertension, Renal insufficiency, Informed consent was obtained prior to the procedure. COMPLICATIONS NONE Estimated Blood Loss: LESS THAN 10 ML TECHNIQUE 1% lidocaine used anesthetize right groin the right femoral artery was accessed via the central technique and a 5 Togolese sheath is placed in the right femoral artery. A pigtail catheter was placed in the suprarenal abdominal aorta and abdominal aortography was performed. The catheter was then repositioned to the infrarenal abdominal aorta and infrarenal abdominal aortography was performed. Following this therapeutic heparin was administered given a therapeutic ACT and the 5 Togolese sheath was exchanged for 6 Togolese sheath. A short MURDOCK guide catheter was used to perform left renal artery selective angiography in Choice PT extra-support wire was placed distally in the left renal artery. A 6 mm x 18 mm Herculink bare-metal balloon mounted stent was deployed at 18 reynaldo reducing the stenosis to 0%. Excellent angiograph results were obtained at the end the procedure the apparatus was removed the patient was transferred to the postop holding in stable condition for sheath removal ANGIOGRAPHIC RESULTS Suprarenal abdominal aorta is patent Infrarenal abdominal aorta is patent Celiac artery is widely patent Superior mesenteric artery is widely patent Inferior mesenteric artery has an ostial concentric 80 to 90% calcified stenosis Right renal artery singular and has proximal 10 to 20% stenosis Left renal artery singular and has an ostial proximal 90% calcified stenosis The right external iliac artery has 30% stenosis in the left common femoral artery has 30 to 40% stenosis IMPRESSION 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 Dual antiplatelet therapy for at least 1 month 2. It is unlikely patient's symptoms are coming from the PINA stenosis. I would like to give patient at least 1 month following revascularization of the renal artery to determine if symptoms are improving. If patient continues to experience early satiety and ongoing weight loss consideration will be given to stent the PINA it is my opinion based on the above anatomy this is unlikely to be producing the GI symptoms patient is reporting, although the possibility does still exist 3. LDL less than 55 achieved with high intensity statin 4. Admit patient overnight for IV fluids. Patient had copious contrast has renal insufficiency and also received a renal artery stent. Monitor blood pressure give IV fluids and keep supine per protocol following manual sheath removal Electronically signed by : Jeffrey Edouard MD 04/01/2025 12:09:56
[2025-04-01 08:36] LABS: Basophils # 0.1 K/mm3 (0-0.2); Basophils % 0.8 % (0.1-2.0); Eosinophils # 0.4 Kmm3 (0.0-0.4); Eosinophils % 2.9 % (0.1-12.0); Hematocrit 47.7 % (42.0-52.0); Immature Granulocytes # 0.04 10^3uL; Immature Granulocytes % 0.3 %; Lymphocytes # 3.1 K/mm3 (0.7-4.5); Mean Corpuscular HGB Conc 33.5 g/dL (31.8-35.4); Mean Corpuscular Hemoglobin 29.4 pg (27.0-31.2); Mean Corpuscular Volume 87.7 fl (80-94); Mean Platelet Volume 11.1 fl (7.4-10.4); Monocytes % 7.9 % (1.7-9.3); Neutrophils # 7.9 K/mm3 (1.8-7.8); Neutrophils % 63.1 % (37.0-80.0); Nucleated Red Blood Cells # 0 10^3/uL; Nucleated Red Blood Cells % 0 %; Platelet Count 157 K/mm3 (142-424); Red Blood Count 5.44 M/mm3 (4.60-6.20); Red Cell Distribution Width 14.3 % (11.5-17.5); Red Cell Distribution Width-SD 45.6 fL; White Blood Count 12.6 K/mm3 (4.8-10.8)
[2025-04-01 08:50] LABS: Anion Gap 8.2 mEq/L (5-15); Blood Urea Nitrogen 20 mg/dl (9-20); Calcium 8.6 mg/dl (8.4-10.2); Carbon Dioxide 32 mmol/L (22.0-30.0); Chloride 104 mmol/L (98-107); Creatinine Clearance Estimated 83 mL/min (50-200); Estimated Glomerular Filt Rate 51 ml/min (>60); GFR (African American) 62 ML/MIN (>60); Glucose 135 mg/dl (74-100); Potassium 3.2 mmoL/L (3.5-5.1); Sodium 141 mmol/L (136-145)
[2025-04-01] MEDS: HEPARIN 1,000 UNITS/500ML NS (CATH LAB) 3000 UNIT IV (10:27)
[2025-04-01] MEDS: 0.9 % SODIUM CHLORIDE 500 ML 25 ML IV (10:27)
[2025-04-01] MEDS: LIDOCAINE 1% 10ML MDV 10 ML IJ (10:27)
[2025-04-01] MEDS: diphenhydrAMINE 50MG/ML VIAL 50 MG IV (10:28)
[2025-04-01] MEDS: HEPARIN 1,000 UNITS/ML 10ML VIAL (CATH LAB) 5000 UNIT IV (10:55)
[2025-04-01] MEDS: MIDAZOLAM HCL 1MG/ML 5ML VIAL 1 MG IV (11:03)
[2025-04-01] MEDS: FENTANYL 100MCG/2ML VIAL 50 MCG IV (11:04)
[2025-04-01] MEDS: CLOPIDOGREL 300MG TABLET 300 MG PO (11:11)
[2025-04-01] MEDS: PROPOFOL 10MG/ML 20ML VIAL 60 MG IV (11:15)
--- NOTE | 2025-04-01 11:53 | HMH.PHAINT1 ---
Pharmacy Intervention Comments: MEDICATION RECONCILIATION COMPLETED ON PATIENT USING EXTERNAL FILL HISTORY FROM PHARMACY. -ELMIRA REYNOLDS, PAULAD
[2025-04-01] MEDS: FAMOTIDINE 20MG/2ML VIAL 20 MG IV (12:13)
[2025-04-01] MEDS: PROTAMINE SULFATE 50MG/5ML VIAL (CATH LAB) 50 MG IV (12:15)
--- NOTE | 2025-04-01 13:18 | PC.NURSE ---
arrived by nicoleer from laboratory chief
[2025-04-01] MEDS: IOPAMIDOL-370 (76%);100ML BOTTLE 130 ML IV (13:24)
[2025-04-01 13:39] LABS: CATHL Activated Clotting Time 264 SEC (74-125)
--- NOTE | 2025-04-01 14:44 | P.HP_ITS ---
History of Present Illness *Admission Date: 04/01/25 *Reason for visit:: Renal artery stenosis *History of present illness: Mr. Clifford is a 64-year-old male with history of CAD, CKD 3, hyper, diabetes, GERD, peripheral vascular disease. Presented for evaluation of abdominal arteries with stenosis noted on CTA of the abdomen. During procedure, found to have severe left renal artery stenosis. Necessitated stenting of the left renal artery. Due to extent of disease, chronic kidney disease, manual pull of sheath, cardiology requested admission for monitoring overnight. Agreed to admit for further care. Patient denies any chest pain or shortness of breath. Is having some belching after arriving to the floor. Complaining of some back pain. Has significant anxiety. Is disappointed to hear he cannot go out and smoke. Complains of significant history of GERD. Cardiology however does not feel the PINA stenosis is a culprit in his GI symptoms at this time. Recommend medical management. Patient stable on room air. Alert and oriented x 4. Family at bedside. [facility] Disclaimer: The information contained in this section may have been updated after the patient was seen, as this information can be updated by other users. Medical History Abnormal CT of the abdomen Weight loss, unintentional Right lateral abdominal pain Renal artery stenosis Mesenteric artery stenosis Renal insufficiency Erosive osteoarthritis Tinnitus Perforated tympanic membrane PVD (peripheral vascular disease) Anxiety Essential hypertension GERD (gastroesophageal reflux disease) Type 2 diabetes mellitus Chronic pain Surgical History History of appendectomy H/O neck surgery History of cholecystectomy History of colonoscopy Social History Smoking Status: Current every day smoker tobacco type: cigarettes packs per day: 2 alcohol intake: never substance use type: denies use current occupational status: retired Travel in the last 8 weeks?: None Have you lived/traveled outside [place] in past 30 days?: No Contact w/someone who lives/traveled outside US past 30 days?: No Exposure to someone with infectious disease in past 14 days?: No Do you have a fever (greater than 100.4 F or 38 C)?: No Have you tested positive for COVID-19?: No Exposed to someone with COVID-19 in past 14 days?: No Do you have a sore throat?: No Do you have a cough?: No Do you have any weakness?: No Do you have any diarrhea?: No Are you experiencing any unusual bleeding?: No Do you have any muscle aches/pain?: No Do you have any abdominal pain?: No Are you experiencing loss of taste or smell?: No Other Medical History Have you received the Flu Vaccine for this season: No Have you received the Pneumonia Vaccine: No Review of Systems Review of Systems Review of systems (narrative): Review of system Meds Home Medications and Allergies Home Medications ?Medication ?Instructions ?Recorded ?Confirmed ?Type aspirin 81 mg tablet,delayed 81 mg PO DAILY 04/11/24 04/01/25 History release (Adult Aspirin Regimen) pravastatin 20 mg tablet 20 mg PO DAILY #90 tabs 04/23/24 04/01/25 Rx clopidogrel 75 mg tablet 75 mg PO DAILY #90 tabs 05/12/24 04/01/25 Rx pantoprazole 40 mg tablet,delayed 40 mg PO DAILY #90 tabs 05/12/24 04/01/25 Rx release losartan 100 mg tablet 100 mg PO DAILY #90 tabs 06/20/24 04/01/25 Rx empagliflozin 25 mg tablet 25 mg PO DAILY #90 tabs 12/10/24 04/01/25 Rx (Jardiance) alprazolam 2 mg tablet 2 mg PO TIDP PRN anxiety 04/01/25 04/01/25 History amlodipine 5 mg tablet 5 mg PO DAILY 04/01/25 04/01/25 History cyclobenzaprine 10 mg tablet 10 mg PO TIDP PRN muscle spasm 04/01/25 04/01/25 History hydrochlorothiazide 25 mg tablet 25 mg PO DAILY 04/01/25 04/01/25 History metformin 1,000 mg tablet 1,000 mg PO BID 04/01/25 04/01/25 History metoprolol tartrate 50 mg tablet 50 mg PO BID 04/01/25 04/01/25 History oxycodone-acetaminophen 10 mg-325 1 tab PO BIDP PRN Severe Pain 04/01/25 04/01/25 History mg tablet (Percocet) (Scale Score 7-10) New Prescriptions to Start Prescriptions: Allergies Allergy/AdvReac Type Severity Reaction Status Date / Time morphine AdvReac Severe Vomiting Verified 04/01/25 08:47 Exam Data for Last 24 hours Vital signs and Labs for Last 24 Hours: Temp Pulse Resp BP Pulse Ox O2 Del Method 97.7 F 65 16 132/99 H 95 Room Air 04/01/25 13:20 04/01/25 14:25 04/01/25 14:25 04/01/25 14:25 04/01/25 14:25 04/01/25 14:25 Laboratory Results - last 24 hr 04/01/25 08:30: WBC 12.6 H, RBC 5.44, Hgb 16.0, Hct 47.7, MCV 87.7, MCH 29.4, MCHC 33.5, RDW 14.3, Plt Count 157, MPV 11.1 H, Neut % (Auto) 63.1, Lymph % (Auto) 25.0, [place] % (Auto) 7.9, Eos % (Auto) 2.9, Baso % (Auto) 0.8, Neut # (Auto) 7.9 H, Lymph # (Auto) 3.1, [place] # (Auto) 1.0, Eos # (Auto) 0.4, Baso # (Auto) 0.1, Sodium 141, Potassium 3.2 L, Chloride 104, Carbon Dioxide 32 H, Anion Gap 8.2, BUN 20, Creatinine 1.40 H, Estimated Creat Clear 83, Estimated GFR 51 L, Est GFR ( Amer) 62, Glucose 135 H, Calcium 8.6 04/01/25 10:48: Activated Clotting Time 264 H* I & O for Last 24 hours: Intake & Output 03/29/25 03/30/25 03/31/25 04/01/25 23:59 23:59 23:59 23:59 Weight 112.037 kg Constitutional Constitutional: no acute distress, obese and chronically ill appearing *Routine HEENT Exam Head: Present normocephalic Eye: Present EOMI and PERRL ENT: Present mucous membranes moist *Routine Neck Exam Neck: Present supple; Absent lymphadenopathy *Routine Respiratory Exam Respiratory: Present CTA bilaterally; Absent respiratory distress, rhonchi, wheezes or crackles *Routine Cardiovascular Exam Cardiovascular: Present RRR *Routine Abdominal Exam Abdominal: Present soft and normoactive bowel sounds; Absent tenderness *Routine Rectal Exam Rectal:: deferred *Routine Genitalia Exam Genitalia:: deferred *Routine Extremities Exam Extremities: Absent cyanosis, clubbing or edema Comments: Right femoral approach site with no bleeding or hematoma *Routine Skin Exam Skin: Present intact and warm; Absent rash *Routine Neurological Exam Neurological: Present alert, oriented X3 and moving all extremities; Absent altered mental status Assessment and Plan *Assessment and plan (1) Renal artery stenosis: Status: Acute Category: Medical Code(s): I70.1 - Atherosclerosis of renal artery (2) CKD stage 3a, GFR 45-59 ml/min: Status: Acute Category: Medical Code(s): N18.31 - Chronic kidney disease, stage 3a (3) Type 2 diabetes mellitus: Status: Acute Qualifiers: Diabetes mellitus complication detail: with peripheral angiopathy without gangrene Diabetes mellitus complication status: with circulatory complication Diabetes mellitus long term acute care registered nurse insulin use: without skilled nursing use Qualified Code(s): E11.51 - Type 2 diabetes mellitus with diabetic peripheral a ngiopathy without gangrene Category: Medical Code(s): E11.9 - Type 2 diabetes mellitus without complications (4) GERD (gastroesophageal reflux disease): Status: Acute Qualifiers: Esophagitis presence: esophagitis presence not specified Qualified Code(s): K21.9 - Gastro-esophageal reflux disease without esophagitis Category: Medical Code(s): K21.9 - Gastro-esophageal reflux disease without esophagitis (5) Essential hypertension: Status: Acute Category: Medical Code(s): I10 - Essential (primary) hypertension (6) Anxiety: Status: Acute Category: Medical Code(s): F41.9 - Anxiety disorder, unspecified (7) Obesity: Status: Acute Qualifiers: Body mass index: BMI 37.0-37.9 Obesity classification: adult class 2 (BMI 35 - 39.9) Obesity type: due to excess calories Serious obesity comorbidity presence: with serious comorbidity Qualified Code(s): E66.01 - Morbid (severe) obesity due to excess calories; Z68.37 - Body mass index (BMI) 37.0-37.9, adult Category: Medical Code(s): E66.9 - Obesity, unspecified (8) Peripheral vascular disease: Status: Acute Category: Medical Code(s): I73.9 - Peripheral vascular disease, unspecified (9) Tobacco abuse: Status: Acute Category: Medical Code(s): Z72.0 - Tobacco use Plan 64-year-old male who presents with abnormal CTA of the abdomen. Found to have significant left renal artery stenosis. Status post stenting x 1. Discussed case with cardiology, request admission for monitoring overnight and repeat labs in the morning to monitor kidney function and sheath site in right groin. I agreed to admit for further care. Problems addressed as follows: Left renal artery stenosis Hypertension Peripheral vascular disease - Status post stent in left renal artery. Will continue dual antiplatelet therapy with aspirin 81 mg daily and Plavix 75 mg daily. - Cardiology consulted to reevaluate in the morning - LDL goal less than 55, continue high intensity statin - Repeat CBC, CMP, magnesium ordered for the morning - Continue amlodipine 5 mg daily, Jardiance 25 mg daily, HCTZ 25 mg daily, losartan 100mg daily, and metoprolol tartrate 50 mg twice daily - Monitor blood pressure closely overnight, will administer fluids if needed Diabetes: A1c well-controlled historically, 6.22 months ago. Continue metformin 1000 mg twice daily, Jardiance 25 mg daily, continue sliding scale insulin with fingersticks ACHS Anxiety: Continue alprazolam 2 mg times day as needed Chronic pain continue oxycodone 10 mg 1 tablet twice daily as needed, continue Flexeril 10 mg 3 times a day as needed GERD: Continue pantoprazole 40 mg daily Tobacco use disorder: Smokes 2 packs a day, initiate 2 patches daily. Patient has no interest in quitting at this time. CKD 3: BUN 20, creatinine 1.4, at baseline. Repeat labs ordered for the morning. Monitor for KOJO or ATN in the setting of contrast load from cath procedure Full code Cardiac diet Heparinized in [employer]
[2025-04-01] MEDS: ALPRAZolam 1MG TABLET 2 MG PO ×2 (15:47→22:16)
[2025-04-01] MEDS: PANTOPRAZOLE 40MG TABLET 40 MG PO (15:47)
[2025-04-01] MEDS: OXYCODONE 10MG W/APAP 325MG TABLET 1 EACH PO (15:47)
[2025-04-01] MEDS: NICOTINE 21MG/24HR PATCH 42 MG TD (15:48)
[2025-04-01 16:02] LABS: POC Glucose,Bedside 104 (70-110)
--- NOTE | 2025-04-01 18:06 | PC.NURSE ---
pt resting supine in bed. cath site to R groin with tegaderm and gauze c/d/i. post op vss. pt medicated for back pain once per jan. tolerating po intake well. home medications restarted. pt can stand at 1910. pt understanding of restrictions. no needs at this time. granddaughter at bedside. call light within reach.
--- NOTE | 2025-04-01 20:13 | PC.NURSE ---
Pt has walked around the unit multiple times and was reminded by staff and this nurse to take it easy due to risks of bleeding after recent heart cath. Pt was also told by nurse x2 to not leave the unit, pt continued to leave unit despite staff concerns and came back smelling of cigarette smoke. pt was again educated on risks to his health and policy of the hospital. Pt pressure dressing to right groin remains clean and intact at this time
[2025-04-01 20:57] LABS: POC Glucose,Bedside 121 (70-110)
[2025-04-01] MEDS: METOPROLOL TARTRATE 50MG TABLET 50 MG PO (21:25)
[2025-04-02] VITALS: PULSE 50
[2025-04-02] MEDS: OXYCODONE 10MG W/APAP 325MG TABLET 1 EACH PO (02:21)
[2025-04-02 04:00] VITALS: BP 103/53; PULSE 58; PULSE 60; RESP 17; TEMP 36.6; O2SAT 92; BMI 33.5
[2025-04-02] MEDS: LIDOCAINE 5% TRANSDERMAL PATCH 1 EACH TD (05:11)
--- NOTE | 2025-04-02 05:27 | INFXCTL.NOTE ---
Pt c/o right hip pain, contacted Dr. William Edouard, new orders for lidocaine patch to right hip
--- NOTE | 2025-04-02 05:30 | PC.NURSE ---
Pt dressing to right groin remains clean and intact. Pt denies chest pain however c/o lower back and hip pain but admits that his pain is chronic and he usually treats his pain with creams and patches at home. Pt is NSR on telemetry. Pt denies needs.
[2025-04-02 05:31] LABS: POC Glucose,Bedside 134 (70-110)
[2025-04-02 06:14] LABS: Basophils # 0.1 K/mm3 (0-0.2); Basophils % 0.6 % (0.1-2.0); Eosinophils # 0.3 Kmm3 (0.0-0.4); Eosinophils % 3.4 % (0.1-12.0); Hematocrit 49.1 % (42.0-52.0); Hemoglobin 16.1 g/dL (14.1-18.0); Immature Granulocytes # 0.03 10^3uL; Immature Granulocytes % 0.3 %; Lymphocytes # 2.2 K/mm3 (0.7-4.5); Lymphocytes % 23.5 % (10-50); Mean Corpuscular HGB Conc 32.8 g/dL (31.8-35.4); Mean Corpuscular Volume 88.5 fl (80-94); Mean Platelet Volume 11.2 fl (7.4-10.4); Monocytes # 0.7 K/mm3 (0.1-1.0); Monocytes % 7.8 % (1.7-9.3); Neutrophils % 64.4 % (37.0-80.0); Nucleated Red Blood Cells # 0 10^3/uL; Nucleated Red Blood Cells % 0 %; Platelet Count 149 K/mm3 (142-424); Red Blood Count 5.55 M/mm3 (4.60-6.20); Red Cell Distribution Width 14.2 % (11.5-17.5); Red Cell Distribution Width-SD 45.2 fL; White Blood Count 9.4 K/mm3 (4.8-10.8)
[2025-04-02 06:18] LABS: Chloride 102 mmol/L (98-107); Sodium 139 mmol/L (136-145)
[2025-04-02 06:19] LABS: Potassium 3.1 mmoL/L (3.5-5.1)
[2025-04-02 06:21] LABS: Alanine Aminotransferase 21 U/L (12-78); Albumin/Globulin Ratio 1.4 (1.1-1.8); Alkaline Phosphatase 73 U/L (38-126); Anion Gap 6.1 mEq/L (5-15); Aspartate Amino Transferase 19 U/L (17-59); Bilirubin,Total 0.4 mg/dl (0.2-1.3); Blood Urea Nitrogen 20 mg/dl (9-20); Carbon Dioxide 34 mmol/L (22.0-30.0); Creatinine Clearance Estimated 78 mL/min (50-200); Estimated Glomerular Filt Rate 47 ml/min (>60); GFR (African American) 57 ML/MIN (>60); Globulin 2.8 g/dL (1.3-3.2); Total Protein,Serum 6.8 g/dl (6.3-8.2)
[2025-04-02 06:22] LABS: Calcium 8.4 mg/dl (8.4-10.2); Glucose 135 mg/dl (74-100); Magnesium 1.5 mg/dl (1.6-2.3)
--- NOTE | 2025-04-02 07:04 | PC.NURSE ---
Pt requested Protonix @ 0700, med not due until 0900, Contacted Dr. Amaya blackburn, orders to give protonix at 0700.
[2025-04-02] MEDS: PANTOPRAZOLE 40MG TABLET 40 MG PO (07:21)
[2025-04-02 07:51] VITALS: BP 126/73; PULSE 69; RESP 18; TEMP 36.4; O2SAT 96
[2025-04-02 08:00] VITALS: PULSE 70
[2025-04-02] MEDS: ASPIRIN EC 81MG TABLET 81 MG PO (08:47)
[2025-04-02] MEDS: hydroCHLOROthiazide 25MG TABLET 25 MG PO (08:47)
[2025-04-02] MEDS: MAGNESIUM SULFATE IN WATER 2 GM/50 ML PIGGYBACK IV (08:48)
[2025-04-02] MEDS: IRBESARTAN 150MG TAB 150 MG PO (08:48)
[2025-04-02] MEDS: CLOPIDOGREL 75MG TAB 75 MG PO (08:48)
[2025-04-02] MEDS: METOPROLOL TARTRATE 50MG TABLET 50 MG PO (08:48)
[2025-04-02] MEDS: POTASSIUM CHLORIDE 20MEQ TAB 40 MEQ PO (08:48)
[2025-04-02] MEDS: AMLODIPINE 5MG TABLET 5 MG PO (08:48)
--- NOTE | 2025-04-02 09:41 | P.DS_ITS ---
General Admission date:: 04/01/25 HPI HPI HPI: Mr. Clifford is a 64-year-old male with history of CAD, CKD 3, hyper, diabetes, GERD, peripheral vascular disease. Presented for evaluation of abdominal arteries with stenosis noted on CTA of the abdomen. During procedure, found to have severe left renal artery stenosis. Necessitated stenting of the left renal artery. Due to extent of disease, chronic kidney disease, manual pull of s sarahy, cardiology requested admission for monitoring overnight. Agreed to admit for further care. Patient denies any chest pain or shortness of breath. Is having some belching after arriving to the floor. Complaining of some back pain. Has significant anxiety. Is disappointed to hear he cannot go out and smoke. Complains of significant history of GERD. Cardiology however does not feel the PINA stenosis is a culprit in his GI symptoms at this time. Recommend medical management. Patient stable on room air. Alert and oriented x 4. Family at bedside. Exam Data for Last 24 hours Vital signs and Labs for Last 24 Hours: Temp Pulse Resp BP Pulse Ox O2 Del Method 97.5 F L 70 18 126/73 96 Room Air 04/02/25 07:51 04/02/25 08:00 04/02/25 07:51 04/02/25 07:51 04/02/25 07:51 04/02/25 08:27 Laboratory Results - last 24 hr 04/01/25 10:48: Activated Clotting Time 264 H* 04/01/25 15:48: POC Glucose 104 04/01/25 20:17: POC Glucose 121 H 04/02/25 05:12: POC Glucose 134 H 04/02/25 05:33: WBC 9.4 D, RBC 5.55, Hgb 16.1, Hct 49.1, MCV 88.5, MCH 29.0, MCHC 32.8, RDW 14.2, Plt Count 149, MPV 11.2 H, Neut % (Auto) 64.4, Lymph % (Auto) 23.5, [place] % (Auto) 7.8, Eos % (Auto) 3.4, Baso % (Auto) 0.6, Neut # (Auto) 6.0, Lymph # (Auto) 2.2, [place] # (Auto) 0.7, Eos # (Auto) 0.3, Baso # (Auto) 0.1, Sodium 139, Potassium 3.1 L, Chloride 102, Carbon Dioxide 34 H, Anion Gap 6.1, BUN 20, Creatinine 1.50 H, Estimated Creat Clear 78, Estimated GFR 47 L, Est GFR ( Amer) 57 L, Glucose 135 H, Calcium 8.4, Magnesium 1.5 L, Total Bilirubin 0.4, AST 19, ALT 21, Alkaline Phosphatase 73, Total Protein 6.8, Albumin 4.0, Globulin 2.8, Albumin/Globulin Ratio 1.4 I & O for Last 24 hours: Intake & Output 03/30/25 03/31/25 04/01/25 04/02/25 23:59 23:59 23:59 23:59 Intake Total 480 / 480 Output Total 875 / 875 0 / 0 Balance -875 / -395 480 / 480 Weight 112.037 kg 112.219 kg Results Data Completed and Pending Labs on day of discharge: Labs from last 24 hours 04/02/25 04/02/25 04/01/25 05:33 05:12 20:17 WBC 9.4 D RBC 5.55 Hgb 16.1 Hct 49.1 MCV 88.5 MCH 29.0 MCHC 32.8 RDW 14.2 Plt Count 149 MPV 11.2 H Neut % (Auto) 64.4 Lymph % (Auto) 23.5 [place] % (Auto) 7.8 Eos % (Auto) 3.4 Baso % (Auto) 0.6 Neut # (Auto) 6.0 Lymph # (Auto) 2.2 [place] # (Auto) 0.7 Eos # (Auto) 0.3 Baso # (Auto) 0.1 Activated Clotting Time Sodium 139 Potassium 3.1 L Chloride 102 Carbon Dioxide 34 H Anion Gap 6.1 BUN 20 Creatinine 1.50 H Estimated Creat Clear 78 Estimated GFR 47 L Est GFR ( Amer) 57 L Glucose 135 H POC Glucose 134 H 121 H Calcium 8.4 Magnesium 1.5 L Total Bilirubin 0.4 AST 19 ALT 21 Alkaline Phosphatase 73 Total Protein 6.8 Albumin 4.0 Globulin 2.8 Albumin/Globulin Ratio 1.4 04/01/25 04/01/25 15:48 10:48 WBC RBC Hgb Hct MCV MCH MCHC RDW Plt Count MPV Neut % (Auto) Lymph % (Auto) [place] % (Auto) Eos % (Auto) Baso % (Auto) Neut # (Auto) Lymph # (Auto) [place] # (Auto) Eos # (Auto) Baso # (Auto) Activated Clotting Time 264 H* Sodium Potassium Chloride Carbon Dioxide Anion Gap BUN Creatinine Estimated Creat Clear Estimated GFR Est GFR ( Amer) Glucose POC Glucose 104 Calcium Magnesium Total Bilirubin AST ALT Alkaline Phosphatase Total Protein Albumin Globulin Albumin/Globulin Ratio DS: Diagnosis Discharge Diagnosis (1) Renal artery stenosis: Status: Acute Code(s): I70.1 - Atherosclerosis of renal artery (2) CKD stage 3a, GFR 45-59 ml/min: Status: Acute Code(s): N18.31 - Chronic kidney disease, stage 3a (3) Type 2 diabetes mellitus: Status: Acute Code(s): E11.9 - Type 2 diabetes mellitus without complications Qualifiers: Diabetes mellitus salvage determiner insulin use: without salvage determiner use Diabetes mellitus complication status: with circulatory complication Diabetes mellitus complication detail: with peripheral angiopathy without gangrene Qualified Code(s): E11.51 - Type 2 diabetes mellitus with diabetic peripheral angiopathy without gangrene (4) GERD (gastroesophageal reflux disease): Status: Acute Code(s): K21.9 - Gastro-esophageal reflux disease without esophagitis Qualifiers: Esophagitis presence: esophagitis presence not specified Qualified Code(s): K21.9 - Gastro-esophageal reflux disease without esophagitis (5) Essential hypertension: Status: Acute Code(s): I10 - Essential (primary) hypertension (6) Anxiety: Status: Acute Code(s): F41.9 - Anxiety disorder, unspecified (7) Obesity: Status: Acute Code(s): E66.9 - Obesity, unspecified Qualifiers: Obesity classification: adult class 2 (BMI 35 - 39.9) Serious obesity comorbidity presence: with serious comorbidity Body mass index: BMI 37.0-37.9 Obesity type: due to excess calories Qualified Code(s): E66.01 - Morbid (severe) obesity due to excess calories; Z68.37 - Body mass index (BMI) 37.0- 37.9, adult (8) Peripheral vascular disease: Status: Acute Code(s): I73.9 - Peripheral vascular disease, unspecified (9) Tobacco abuse: Status: Acute Code(s): Z72.0 - Tobacco use Meds Home Medications and Allergies Home Medications ?Medication ?Instructions ?Recorded ?Confirmed ?Type aspirin 81 mg tablet,delayed 81 mg PO DAILY 04/11/24 04/01/25 History release (Adult Aspirin Regimen) pravastatin 20 mg tablet 20 mg PO DAILY #90 tabs 04/23/24 04/01/25 Rx clopidogrel 75 mg tablet 75 mg PO DAILY #90 tabs 05/12/24 04/01/25 Rx pantoprazole 40 mg tablet,delayed 40 mg PO DAILY #90 tabs 05/12/24 04/01/25 Rx release losartan 100 mg tablet 100 mg PO DAILY #90 tabs 06/20/24 04/01/25 Rx empagliflozin 25 mg tablet 25 mg PO DAILY #90 tabs 12/10/24 04/01/25 Rx (Jardiance) alprazolam 2 mg tablet 2 mg PO TIDP PRN anxiety 04/01/25 04/01/25 History amlodipine 5 mg tablet 5 mg PO DAILY 04/01/25 04/01/25 History cyclobenzaprine 10 mg tablet 10 mg PO TIDP PRN muscle spasm 04/01/25 04/01/25 History hydrochlorothiazide 25 mg tablet 25 mg PO DAILY 04/01/25 04/01/25 History metformin 1,000 mg tablet 1,000 mg PO BID 04/01/25 04/01/25 History metoprolol tartrate 50 mg tablet 50 mg PO BID 04/01/25 04/01/25 History oxycodone-acetaminophen 10 mg-325 1 tab PO BIDP PRN Severe Pain 04/01/25 04/01/25 History mg tablet (Percocet) (Scale Score 7-10) New Prescriptions to Start Prescriptions: Allergies Allergy/AdvReac Type Severity Reaction Status Date / Time morphine AdvReac Severe Vomiting Verified 04/01/25 08:47 Discharge Plan Disposition Patient Disposition: Home, Self-Care Condition: Fair Follow up Plan Follow up with: Jeffrey Edouard MD [Staff Physician] - 04/08/25 11:00 am Orlando Richey MD [Primary Care Provider] - Enter time for follow up Prescriptions/Medication Reconciliation: Continued aspirin [Adult Aspirin Regimen] 81 mg tablet,delayed release (DR/EC) 81 mg PO DAILY Jardiance 25 mg tablet 25 mg PO DAILY Qty: 90 3RF pravastatin 20 mg tablet 20 mg PO DAILY Qty: 90 3RF clopidogrel 75 mg tablet 75 mg PO DAILY Qty: 90 3RF pantoprazole 40 mg tablet,delayed release (DR/EC) 40 mg PO DAILY Qty: 90 3RF losartan 100 mg tablet 100 mg PO DAILY Qty: 90 3RF cyclobenzaprine 10 mg tablet 10 mg PO TIDP PRN (Reason: muscle spasm) amlodipine 5 mg tablet 5 mg PO DAILY oxycodone-acetaminophen [Percocet] 10-325 mg tablet 1 tab PO BIDP PRN (Reason: Severe Pain (Scale Score 7-10)) metoprolol tartrate 50 mg tablet 50 mg PO BID hydrochlorothiazide 25 mg tablet 25 mg PO DAILY alprazolam 2 mg tablet 2 mg PO TIDP PRN (Reason: anxiety) metformin 1,000 mg Tablet 1,000 mg PO BID Problem Reconciliation Problems Reviewed?: Yes Patient Discharge Instructions ACTIVITY: Continue current activity DIET: continue same diet Patient Instructions: Cardiac Catheterization, Surgical Site Infection, DI for Moderate Sedation, DI for Post-Surgical Bleeding, Cardiology Catheterization Patient / Family Discharge Instructions Print Language: Turkish Providers Primary Care Provider: Orlando Richey Admit Provider: Jeffrey Edouard Attending Provider: Lex Martinez
== END 2025-04-02 09:59 | disposition home or self-care (01) ==
LOC: 2ND 11:22
PROVIDERS: Admitting Provider Internal Medicine; PCP Family Medicine; Visit Provider Internal Medicine Adolescent Medicine
DX: I70.1 Atherosclerosis of renal artery (principal); I77.1 Stricture of artery; N18.31 Chronic kidney disease, stage 3a; I12.9 Hypertensive chronic kidney disease with stage 1 through stage 4 chronic kidney disease, or unspecified chronic kidney disease; R93.5 Abnormal findings on diagnostic imaging of other abdominal regions, including retroperitoneum; E11.51 Type 2 diabetes mellitus with diabetic peripheral angiopathy without gangrene; E11.22 Type 2 diabetes mellitus with diabetic chronic kidney disease; F17.210 Nicotine dependence, cigarettes, uncomplicated; Z88.5 Allergy status to narcotic agent; Z79.84 Long term (current) use of oral hypoglycemic drugs; Z79.82 Long term (current) use of aspirin; Z79.899 Other long term (current) drug therapy; E66.812 Obesity, class 2; Z68.33 Body mass index [BMI] 33.0-33.9, adult
CPT/HCPCS: 36415; 37236; 80048; 80053; 82962; 83735; 85025; 85347; 99152; 99153; C1725; C1769; C1876; C1887; C1894; G0378; J1200; J1644; J2720; J3010; J3475; Q9967

== ENCOUNTER 2025-04-08 11:17 | Outpatient (CLI) | payer BC, SELFPAY ==
[2025-04-08 12:24] LABS: Alanine Aminotransferase 25 U/L (12-78); Albumin Level 4.7 g/dl (3.5-5.0); Alkaline Phosphatase 74 U/L (38-126); Aspartate Amino Transferase 24 U/L (17-59); Bilirubin,Total 0.6 mg/dl (0.2-1.3); Blood Urea Nitrogen 26 mg/dl (9-20); Calcium 9.3 mg/dl (8.4-10.2); Carbon Dioxide 26 mmol/L (22.0-30.0); Chloride 103 mmol/L (98-107); Estimated Glomerular Filt Rate 51 ml/min (>60); GFR (African American) 62 ML/MIN (>60); Globulin 2.3 g/dL (1.3-3.2); Glucose 126 mg/dl (74-100); Sodium 138 mmol/L (136-145)
[2025-04-08 13:04] LABS: HIV Combo NEGATIVE (Negative)
[2025-04-08 13:12] LABS: Hepatitis C Ab Qual. W/ RFX NEGATIVE (Negative)
== END 2025-04-08 23:59 | disposition home or self-care (01) ==
LOC: LAB 11:17
PROVIDERS: PCP Family Medicine; Visit Provider Family Medicine
DX: Z95.5 Presence of coronary angioplasty implant and graft (principal)
CPT/HCPCS: 36415; 80053; 86803; 87389